=== PATIENT | male | born 1990 | race Caucasian/White ===

== ENCOUNTER 2020-03-18 14:02 | Emergency (ER) | payer OTHER ==
[~2020-03-18] VITALS: Ht 175.2 cm; Wt 77.1 kg
[2020-03-18] MEDS ORDERED: CEPHALEXIN500 M1 PO (15:09)
[2020-03-18] MEDS ORDERED: IBUPROFEN600 MG PO (15:09)
== END 2020-03-18 15:42 | disposition home or self-care (01) ==
LOC: ED 14:02
DX: S69.92XA Unspecified injury of left wrist, hand and finger(s), initial encounter (principal); W22.8XXA Striking against or struck by other objects, initial encounter; Y93.89 Activity, other specified; Y92.89 Other specified places as the place of occurrence of the external cause; Y99.8 Other external cause status